=== PATIENT | male | born 1960 | race African-American/Black ===

== ENCOUNTER 2016-10-15 06:37 | Emergency (ER) | payer BC ==
[~2016-10-15] VITALS: Ht 175.3 cm; Wt 118.0 kg
[~2016-10-15 06:37] MED LIST: AMLO2.5T PO; INDO50CA PO; MOBI15TA PO; ULTR50TA PO; ZOFR4TAB3 SL
[2016-10-15 06:39] VITALS: BP 211/119; PULSE 96; RESP 14; TEMP 97.8; O2SAT 98
[2016-10-15 06:51] VITALS: BP 202/107; PULSE 87; RESP 18; O2SAT 98
[2016-10-15] MEDS ORDERED: AMLO5TAB2 PO (07:10)
[2016-10-15] MEDS ORDERED: cloNIDine HCL 0.1 MG TAB PO ONE (07:15)
[2016-10-15] MEDS ORDERED: KETOROLAC TROMETHAMINE 30 MG/ML (IVP) VIAL IV PUSH ONE (07:15)
--- NOTE | 2016-10-15 07:16 | PD ---
HPI Chief Complaint: right lateral shoulder muscle pain Time Seen by Provider: 07:04 Travel History International Travel<30 days: No Contact w/Intl Traveler<30days: No Traveled to known affect area: No History of Present Illness HPI This is a 56-year-old gentleman with history of hypertension, gout, who presents today with complaints of right lateral neck pain with movement. The patient states he does a lot of heavy lifting including overhead heavy lifting. Reports pain in his right lateral neck down his trapezius muscle to his shoulder. He states it is painful when he turns his head from [id number] and up and down. Please note that the initial chief complaint stated headache however he denies any headache at all. The patient denies any numbness or tingling of his extremity. He denies any blurry vision. He reports pain in his left lateral neck along the trapezius muscle distribution only. The patient was noted to have elevated blood pressure. He states he has not been taking his blood pressure medication because he reportedly had normalized. The patient denies any shortness breath, chest pain, palpitations, or any other reason. PFSH Past Medical History Cardiovascular Problems: Yes Diminished Hearing: Yes Hypertension: Yes Medical other: Yes (gout right arm ) Tetanus Vaccination: < 5 Years Influenza Vaccination: No Past Surgical History Other Surgery: Yes (HERNIA REPAIR) Social History Alcohol Use: Yes (occasional ) Tobacco Use: No Substance Use: No Allergies-Medications (Allergen,Severity, Reaction): Coded Allergies: Chocolate (Unverified Allergy, Mild, BREAKS OUT IN [facility], 10/15/16) Reported Meds & Prescriptions Reported Meds & Active Scripts Active Diclofenac Potassium 50 Mg Tab 30 Mg PO TID Medrol Dosepak (Methylprednisolone) 4 Mg Dspk 4 Mg PO DIRECTED Per Pharmacist direction Amlodipine (Amlodipine Besylate) 5 Mg Tab 5 Mg PO DAILY Review of Systems Except as stated in HPI: all other systems reviewed are Neg Eyes: No: Diploplia, Blurred Vision HENT: Positive: Neck Pain (right trapezius muscle pain. No true neck pain.), No: Headaches, Neck Stiffness Cardiovascular: No: Chest Pain or Discomfort, Palpitations Respiratory: No: Cough, Shortness of Breath Gastrointestinal: No: Nausea Musculoskeletal: Positive: Myalgias (right lateral trapezius muscle soreness.) , Pain (right trapezius muscle soreness from the right lateral neck.) Physical Exam Narrative GENERAL: Well-nourished, well-developed patient, in no acute respiratory distress. SKIN: Focused skin assessment warm/dry. HEAD: Normocephalic and atraumatic. EYES: No scleral icterus. No injection or drainage. NECK: Supple, trachea midline. The patient has tenderness on his right lateral trapezius muscle across his shoulder. There is pain with lateral movement and horizontal movement. There is no posterior spinous process tenderness. CARDIOVASCULAR: Regular rate and rhythm without murmurs, gallops, or rubs. RESPIRATORY: Breath sounds equal bilaterally. No accessory muscle use. MUSCULOSKELETAL: No cyanosis, or edema. 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 NEUROLOGICAL: Awake and alert. Cranial nerves II through XII intact. Motor and sensory grossly within normal limits. Five out of 5 muscle strength in all muscle groups. Normal speech. Data Data Last Documented VS Vital Signs Date Time Temp Pulse Resp B/P Pulse Ox O2 Delivery O2 Flow Rate FiO2 10/15/16 06:51 87 18 202/107 98 Room Air 10/15/16 06:39 97.8 Orders Ketorolac Inj (Toradol Inj) (10/15/16 07:15) Clonidine (Catapres) (10/15/16 07:15) Basic Metabolic Panel (Bmp) (10/15/16 07:04) Iv Access Insert/Monitor (10/15/16 07:04) Labs Laboratory Tests Test 10/15/16 07:14 Sodium Level 140 MEQ/L Potassium Level 4.2 MEQ/L Chloride Level 107 MEQ/L Carbon Dioxide Level 23.4 MEQ/L Anion Gap 10 MEQ/L Blood Urea Nitrogen 15 MG/DL Creatinine 1.08 MG/DL Estimat Glomerular Filtration 85 ML/MIN Rate Random Glucose 115 MG/DL Calcium Level 8.9 MG/DL MDM Medical Decision Making Medical Screen Exam Complete: Yes Emergency Medical Condition: Yes Differential Diagnosis Right trapezius muscle strain, inflammation versus herniated nucleus pulposus versus degenerative disc disease. Narrative Course 56-year-old male with a history of hypertension, who presents today with complaints of right trapezius muscle pain. The patient has also history of gout in his right elbow. He states he's been sleeping differently with his arm extended. He has tenderness over his trapezius muscle just region. There are no focal neurologic signs. His blood pressure was elevated and he reports he had not been taking his blood pressure medicines as prescribed previously. Looking through old records he was on amlodipine. I have written a prescription for 30 days of amlodipine 5 mg. He's also been given a prescription for Medrol Dosepak and diclofenac. He is instructed to follow up with his primary doctor at the [facility] for his blood pressure evaluation. He is instructed return of he lost any worsening symptoms. Repeat blood pressures at the time of discharge was within normal limits. Diagnosis Primary Impression: Strain of right trapezius muscle Additional Impressions: Hypertension Refill clinic medication management patient Additional Instructions: Follow up with [facility] doctor for blood pressure management. Return if worse. Med/Other Pt SpecificInfo: Prescription(s) given Scripts Diclofenac Potassium 50 Mg Tab30 Mg PO TID #90 TAB Ref 0 Prov:Joey Benson MD 10/15/16 Methylprednisolone Dosepak (Medrol Dosepak)4 Mg Dspk4 Mg PO DIRECTED #1 DSPK Ref 0 Per Pharmacist direction Prov:Joey Benson MD 10/15/16 Amlodipine 5 Mg Tab5 Mg PO DAILY #30 TAB Ref 0 Prov:Joey Benson MD 10/15/16 Disposition: DISCHARGE HOME Condition: Stable Joey Benson MD October 15, 2016 07:16 Joey Benson MD October 15, 2016 07:16
[2016-10-15 08:01] LABS: BICARBONATE 23.4 MEQ/L (21.0-32.0); POTASSIUM 4.2 MEQ/L (3.5-5.1)
[2016-10-15] MEDS ORDERED: MEDR4PAK PO (08:17)
[2016-10-15] MEDS ORDERED: DICL50TA PO (08:17)
[2016-10-15 08:30] VITALS: BP 138/74; PULSE 82; RESP 16; O2SAT 100
== END 2016-10-15 08:47 | disposition home or self-care (01) ==
LOC: NEPC 06:37
DX: S46.811A Strain of other muscles, fascia and tendons at shoulder and upper arm level, right arm, initial encounter (principal); H91.90 Unspecified hearing loss, unspecified ear; I10 Essential (primary) hypertension; M10.9 Gout, unspecified; X50.0XXA Overexertion from strenuous movement or load, initial encounter; Y93.89 Activity, other specified; Y92.9 Unspecified place or not applicable; Y99.9 Unspecified external cause status
CPT/HCPCS: 80048; 96374; 99283; J1885